=== PATIENT | male | born 1995 | race African-American/Black ===

== ENCOUNTER 2017-11-12 20:25 | Emergency (ER) | payer SELFPAY ==
[2017-11-12 21:15] VITALS: RESP 18; O2SAT 100
[2017-11-12] MEDS ORDERED: Alum-Mag Hydrox-Simethicone Susp (30 mL) PO STA (21:48)
[2017-11-12] MEDS ORDERED: Alum-Mag Hydrox-Simethicone Susp (30 mL) ONE (21:55)
--- NOTE | 2017-11-12 22:44 | C.PDOC ---
History Of Present Illness Patient reports 3 day history of mid cramping epigastric pain which is associated gas, bloating, and excessive belching. Denies fever, nausea, vomiting , diarrhea, GI bleeding, dysuria, or history of abdominal surgery. Time Seen by Provider: 11/12/17 21:26 Chief Complaint (Nursing): Abdominal Pain History Per: Patient History/Exam Limitations: no limitations Onset/Duration Of Symptoms: Days Severity: Mild Location Of Pain/Discomfort: Epigastric Radiation Of Pain To:: None Quality Of Discomfort: Cramping Associated Symptoms: denies: Back Pain, Constipation Exacerbating Factors: None Alleviating Factors: None Last Bowel Movement: Today Recent travel outside of the [place]: No Past Medical History Reviewed: Historical Data, Nursing Documentation, Vital Signs Vital Signs: Last Vital Signs Temp 97.9 F 11/12/17 22:55 Pulse 70 11/12/17 22:55 Resp 18 11/12/17 22:55 BP 124/82 11/12/17 22:55 Pulse Ox 100 11/12/17 23:46 - Medical History PMH: No Chronic Diseases Surgical History: No Surg Hx Family History: States: No Known Family Hx - Social History Hx Alcohol Use: No Hx Substance Use: No - Immunization History Hx Tetanus Toxoid Vaccination: No Hx Influenza Vaccination: No Hx Pneumococcal Vaccination: No Review Of Systems Except As Marked, All Systems Reviewed And Found Negative. Physical Exam - Physical Exam Appears: Non-toxic, No Acute Distress Skin: Normal Color, Warm Head: Atraumatic, Normacephalic Eye(s): bilateral: Normal Inspection Oral Mucosa: Moist Neck: Normal ROM, Supple Cardiovascular: Rhythm Regular, No Friction Rub, No Murmur Respiratory: Normal Breath Sounds, No Rales, No Rhonchi, No Wheezing Gastrointestinal/Abdominal: Soft, No Tenderness Back: Normal Inspection, No CVA Tenderness Extremity: Normal ROM, No Tenderness, No Swelling Neurological/Psych: Oriented x3, Normal Speech, Normal Motor Gait: Steady ED Course And Treatment O2 Sat by Pulse Oximetry: 100 (on RA) Pulse Ox Interpretation: Normal Medical Decision Making Medical Decision Making: Obstructive series is negative. On re-exam, the patient reports improvement of symptoms. Lungs are CTA, heart is RRR, abdomen is soft, non-tender and tolerating PO well. Ambulatory in the ED with steady gait. Follow up with the medical doctor with 1-2 days. return if worsened. Disposition - Disposition Referrals: [facility] [Outside] Disposition: HOME/ ROUTINE Disposition Time: 22:42 Condition: GOOD Additional Instructions: Follow up with the medical doctor with 1-2 days. return if worsened. Prescriptions: Aluminum Hydroxide/Magnesium [Maalox Plus 30 ml] 30 ml PO TID #200 udc Famotidine [Pepcid] 20 mg PO BID #20 tab Instructions: Gas and Bloating Forms: [facility] (French) - Clinical Impression Clinical Impression: Abdominal gas pain
[2017-11-12 22:56] VITALS: BP 124/82; PULSE 70; TEMP 97.9
--- NOTE | 2017-11-13 09:13 | RAD ---
Abdomen four views History: Abdominal pain. Comparison: None available. Findings: Lung jorge are clear. Heart size within limits. Moderate fecal retention in the colon. Relative paucity of small bowel gas. Few scattered radiopaque densities may be within the colon. Clinical correlation. Impression: Fecal retention in the colon. Relative paucity of small bowel gas.
== END 2017-11-12 22:55 | disposition home or self-care (01) ==
LOC: C.ER 20:25
DX: R14.1 Gas pain (principal)

== ENCOUNTER 2018-02-13 14:21 | Emergency (ER) | payer OTHER ==
[2018-02-13 15:19] LABS: BASO # 0.1 K/uL (0.0-0.2); BASO % 0.6 % (0.0-2.0); EOS # 0.1 K/uL (0.0-0.7); EOS % 0.9 % (0.0-4.0); HEMOGLOBIN 15.8 g/dL (12.0-18.0); LYMPH # 1.2 K/uL (1.0-4.3); LYMPH % 11.7 % (20.0-40.0); MEAN CELL VOLUME 89.7 fL (80.0-94.0); MEAN CORPUSCULAR HEMOGLOBIN 30.4 pg (27.0-31.0); MEAN CORPUSCULAR HGB CONC 33.9 g/dL (33.0-37.0); MEAN PLATELET VOLUME 9.4 fL (7.2-11.7); MONO # 0.4 K/uL (0.0-0.8); MONO % 4.4 % (0.0-10.0); NEUT # 8.3 K/uL (1.8-7.0); NEUT % 82.4 % (50.0-75.0); RBC 5.18 Mil/uL (4.40-5.90); RED CELL DISTRIBUTION WIDTH 14.9 % (11.5-14.5); WHITE BLOOD COUNT 10.1 K/uL (4.8-10.8)
--- NOTE | 2018-02-13 15:20 | C.PDOC ---
Addendum entered and electronically signed by Joe Marquis MD 02/14/18 07:04: Addendum Addendum: 02/14/18 07:04 ekg as read by me nsr 81 bpm, nsstt changes Original Note: History Of Present Illness <Itzel Maradiaga - Last Filed: 02/13/18 18:44> <Joe Marquis - Last Filed: 02/14/18 07:04> <Pam Azar - Last Filed: 02/14/18 13:07> 22 y/o male presents to ED for evaluation of depression with suicidal ideation gradually developed for "few weeks. Patient has no suicidal plan, denies hallucinations, denies drug use, denies any active physical complaints at this time. At daisy time of evaluation, pt appears comfortable, not in any apparent distress. (Itzel Maradiaga) History Per: Patient History/Exam Limitations: no limitations Onset/Duration Of Symptoms: Days Current Symptoms Are (Timing): Still Present Suicide/Self Injury Attempted (Context): None Modifying Factor(s): None Associated Symptoms: Depression, Suicidal Thoughts. denies: Suicidal Plan <Itzel Maradiaga - Last Filed: 02/13/18 18:44> <Joe Marquis - Last Filed: 02/14/18 07:04> <Pam Azar - Last Filed: 02/14/18 13:07> Time Seen by Provider: 02/13/18 14:29 Chief Complaint (Nursing): Psychiatric Evaluation Past Medical History Reviewed: Historical Data, Nursing Documentation, Vital Signs - Medical History PMH: No Chronic Diseases Surgical History: No Surg Hx Family History: States: No Known Family Hx - Social History Hx Alcohol Use: No Hx Substance Use: No - Immunization History Hx Tetanus Toxoid Vaccination: No Hx Influenza Vaccination: No Hx Pneumococcal Vaccination: No <Itzel Maradiaga - Last Filed: 02/13/18 18:44> Vital Signs: Last Vital Signs Temp 98 F 02/14/18 10:25 Pulse 68 02/14/18 10:25 Resp 18 02/14/18 10:25 BP 118/76 02/14/18 10:25 Pulse Ox 98 02/14/18 10:25 Review Of Systems Constitutional: Negative for: Fever, Chills Cardiovascular: Negative for: Chest Pain, Palpitations Respiratory: Negative for: Shortness of Breath Gastrointestinal: Negative for: Nausea, Vomiting Psych: Positive for: Depression, Suicidal ideation. Negative for: Anxiety, Withdrawal <Itzel Maradiaga - Last Filed: 02/13/18 18:44> Physical Exam - Physical Exam Appears: Non-toxic, No Acute Distress Skin: Normal Color, Warm, Dry, No Rash Head: Normacephalic Eye(s): bilateral: Normal Inspection Oral Mucosa: Moist Neck: Normal ROM, Supple Cardiovascular: Rhythm Regular Respiratory: Normal Breath Sounds, No Rales, No Rhonchi, No Wheezing Gastrointestinal/Abdominal: Soft, No Tenderness, No Guarding, No Rebound Neurological/Psych: Oriented x3, Normal Speech, Normal Cognition <Itzel Maradiaga - Last Filed: 02/13/18 18:44> ED Course And Treatment - Laboratory Results Result Diagrams: 02/13/18 15:13 02/13/18 15:13 Lab Interpretation: Normal O2 Sat by Pulse Oximetry: 99 (RA) Pulse Ox Interpretation: Normal - Radiology CXR: Interpreted by Me, Viewed By Me CXR Interpretation: Yes: No Acute Disease Progress Note: At 16:02, pt is medically cleared for PES evaluation and further treatment/transfer as need. After pt was seen by PES, case discussed with , screening recommend now. Case was discussed and sign out to , [facility] [place] - pending. Pt remained stable during the ED evaluation. Afebrile, hemodynamicalys table. Appropriate, not in any apparent distress. <Itzel Maradiaga - Last Filed: 02/13/18 18:44> - Laboratory Results Result Diagrams: 02/13/18 15:13 02/13/18 15:13 Pulse Ox Interpretation: Normal Progress Note: 5:30 AM pt agitated, combative. placed in 4 point restaints for patient's safety as well as the safety of the ed. awaiting bed availability at [facility] <Joe Marquis - Last Filed: 02/14/18 07:04> - Laboratory Results Result Diagrams: 02/13/18 15:13 02/13/18 15:13 <Pam Azar - Last Filed: 02/14/18 13:07> Progress <Itzel Maradiaga - Last Filed: 02/13/18 18:44> <Pam Azar - Last Filed: 02/14/18 13:07> - Re-Evaluation Re-evaluation Note: 02/14/18 13:07 D/W CRISIS GILDA, PENDING DISPO [facility] (Pam Azar) Disposition - Disposition Disposition Time: 18:48 <Itzel Maradiaga - Last Filed: 02/13/18 18:44> <Joe Marquis - Last Filed: 02/14/18 07:04> <Pam Azar - Last Filed: 02/14/18 13:07> - Disposition Condition: STABLE Forms: [facility] (Angolan) - Clinical Impression Clinical Impression: Moderate major depression, single episode, Suicidal ideation - PA / LAP [employer]NER / Resident Statement MD/DO has reviewed & agrees with the documentation as recorded. - Scribe Statement The provider has reviewed the documentation as recorded by the Scribe <Itzel Maradiaga - Last Filed: 02/13/18 18:44> <Joe Marquis - Last Filed: 02/14/18 07:04> <Pam Azar - Last Filed: 02/14/18 13:07> - Scribe Statement Juliano Escoto All medical record entries made by the Scribe were at my direction and personally dictated by me. I have reviewed the chart and agree that the record accurately reflects my personal performance of the history, physical exam, medical decision making, and the department course for this patient. I have also personally directed, reviewed, and agree with the discharge instructions and disposition. (Itzel Maradiaga) Physician Patient Turnover Patient Signed Over To: Joe Marquis Handoff Comments: [facility] screaner <Itzel Maradiaga - Last Filed: 02/13/18 18:44> Patient Signed Over To: Pam Azar Handoff Comments: pending [facility] bed availability <Joe Marquis - Last Filed: 02/14/18 07:04>
[2018-02-13 15:31] LABS: ALB/GLOB RATIO 1.5 (1.0-2.1); ALBUMIN 4.6 g/dL (3.5-5.0); ALT/SGPT 18 U/L (21-72); AST/SGOT 24 U/L (17-59); BLOOD UREA NITROGEN 8 mg/dL (9-20); CALCIUM 10.1 mg/dl (8.6-10.4); GFR AFRICAN-AMERICAN > 60; GFR NON-AFRICAN AMERICAN > 60
[2018-02-13 15:34] LABS: URINE BILIRUBIN NEGATIVE (NEGATIVE); URINE BLOOD NEGATIVE (NEGATIVE); URINE CLARITY Clear (Clear); URINE COLOR Yellow (YELLOW); URINE GLUCOSE (UA) NORMAL (Normal); URINE LEUKOCYTE ESTERASE NEG Leu/uL (Negative); URINE PROTEIN NEGATIVE (NEGATIVE); URINE UROBILINOGEN NORMAL mg/dL (0.2-1.0)
[2018-02-13 15:47] LABS: BARBITURATES, UR NEGATIVE (NEGATIVE); BENZODIAZEPINES, UR NEGATIVE (NEGATIVE); OPIATES, UR NEGATIVE (NEGATIVE); PHENCYCLIDINE, UR NEGATIVE (NEGATIVE)
--- NOTE | 2018-02-13 16:33 | RAD ---
PROCEDURE: CHEST RADIOGRAPH, 1 VIEW HISTORY: Detox/Psy COMPARISON: None available. FINDINGS: LUNGS: Clear. PLEURA: No pneumothorax or pleural fluid seen. CARDIOVASCULAR: Normal. OSSEOUS STRUCTURES: No significant abnormalities. VISUALIZED UPPER ABDOMEN: Normal. OTHER FINDINGS: None. IMPRESSION: No active disease.
[2018-02-14 10:25] VITALS: BP 118/76; RESP 18; TEMP 98; O2SAT 98
--- NOTE | 2018-02-14 12:00 | PCM.PSYCH ---
Initial Psychiatric Evaluation - Initial Psychiatric Evaluation Type of Admission: Involuntary Chief Complaint (in patient's own words): "I am depressed" History of Present Illness and Precipitating Events: The patient is seen, chart reviewed and case discussed. This is a 22-year-old [place]ian [place] male, single with no child, student at [employer], lives with friends. Consultation was requested because of his psychiatric condition The patient is here because of suicidal ideation which he still has, however he denies having any plans or intentions at this point. He says his been depressed for a long time but got worse recently. He counts "financial, relational and family problems" as his stressors but he doesn't elaborate. He just said that he broke up with his girlfriend about a year ago. He denies psychotic or manic symptoms except for sleeping only 3 or 4 hours every day. He admits to using marijuana, LSD, cocaine and mushrooms on and off and he's a cigarette smoker. He denies other drugs and alcohol. Past psych history: No admissions or treatments except for using Xanax from a cousin who brought it from [facility]. Medical history: Denies Family psych history: Denies Past Psychiatric History - Past Psychiatric History Previous Treatment History: None Pertinent Medical Hx (Current Medical&Sleep Prob, Allergies): Allergies Allergy/AdvReac Type Severity Reaction Status Date / Time No Known Allergies Allergy Verified 02/13/18 14:28 No Known Home Med 02/13/18 Review of Systems - Psychiatric Psychiatric: Abnormal Sleep Pattern, Anhedonia, Anxiety, Change in Appetite, Depression, Difficulty Concentrating, Irritability, Mood Swings, Suicidal Ideation. absent: Hallucinations, Homicidal Ideation Mental Status Examination - Personal Presentation Personal Presentation: Looks stated age - Affect Affect: Constricted - Motor Activity Motor Activity: Calm - Reliability in Providing Information Reliability in Providing Information: Fair - Speech Speech: Organized - Mood Mood: Depressed, Anxious - Formal Thought Process Formal Thought Process: No Impairment - Cognitive Functions Orientation: Person, Place, Situation, Time Sensorium: Alert Attention/Concentration: Attentive Estimate of Intelligence: Average Judgement: Imparied, as evidence by: Poor judgement (Refusing treatment) Memory: Recent intact, as evidence by: Ability to recall events of the day, Remote intact, as evidenced by: Abilit to recall sig. life events - Risk Risk: Diminished functioning - Strength & Assets Inventory Strength & Assets Inventory: Cooperative - Limitations Limitations: Living alone DSM 5 DX - DSM 5 DSM 5 Diagnosis: Major depressive disorder, single, severe, without psychosis Dysthymic disorder Cannabis use disorder Cocaine use disorder Hallucinogenic use disorder - Recommended/Plan of Treatment Treatment Recommendations and Plan of Treatment: As needed medications for now [facility], he is accepted Nuclear Supervising Operator offered admission to our voluntary unit but he refused Support and psychoeducation 33 min
[2018-02-14 14:34] VITALS: PULSE 78
--- NOTE | 2018-02-15 23:58 | CARD ---
APPROVED REPORT EKG Measurement Heart [id number] <Conclusion> Normal sinus rhythm Early repolarization Normal ECG
== END 2018-02-14 15:40 | disposition short-term general hospital (02) ==
LOC: C.ER 14:21
DX: F32.1 Major depressive disorder, single episode, moderate (principal); R45.851 Suicidal ideations; F34.1 Dysthymic disorder; F12.10 Cannabis abuse, uncomplicated; F14.90 Cocaine use, unspecified, uncomplicated; F16.90 Hallucinogen use, unspecified, uncomplicated
CPT/HCPCS: 71045; 80053; 80320; 80324; 80345; 80346; 80349; 80353; 80358; 80361; 81001; 83992; 85025; 93005; 96372; 99285; J2060